=== PATIENT | male | born 1995 | race Caucasian/White ===

== ENCOUNTER 2023-07-23 15:15 | Emergency (ER) | payer OTHER ==
[2023-07-23 15:44] VITALS: O2SAT 100
[2023-07-23] MEDS ORDERED: AMOX/CLAV 875 MG/125 MG TABLET PO STA (17:22)
--- NOTE | 2023-07-23 17:24 | ED Physician Documentation ---
PD HPI UPPER EXT INJURY - Stated complaint Stated Complaint: RT HAND DOG BITE - Chief complaint Chief Complaint: Wound - History obtained from History obtained from: Patient - Additonal information Additional information: 28-year-old male, member of the , presents after sustaining a dog bite to the right hand. The patient was out on a trail nearby and a another trailer user's dog bit the patient on the right hand. According to the dog's collator operator, the dog is up-to-date on vaccines. The patient is also up-to-date on his tetanus. He states he poured some bottled water on it and use some baby wipes to clean it and then came directly here. He states it is quite tender, and he feels a little bit of numbness tingling in his hand. He is however able to flex and extend the wrist and fingers without difficulty.He denies any other injuries today. Review of Systems Constitutional: reports: Reviewed and negative Skin: reports: Bite / sting Musculoskeletal: reports: Extremity pain PD PAST MEDICAL HISTORY - Past Medical History Past Medical History: No - Past Surgical History Past Surgical History: No - Present Medications Home Medications: Ambulatory Orders Medication Instructions Recorded Confirmed Cyclobenzaprine [Flexeril] 10 mg PO TID PRN #20 tablet 04/17/23 Naproxen 2 tab PO BID PRN #30 tablet 04/17/23 Amox/Clav 875/125 [Augmentin] 1 each PO Q12H #20 tablet 07/23/23 - Allergies Allergies/Adverse Reactions: Allergies Allergy/AdvReac Type Severity Reaction Status Date / Time No Known Drug Allergies Allergy Verified 04/17/23 14:23 - Social History Does the pt smoke?: No Smoking Status: Never smoker PD ED PE NORMAL - Vitals Vital signs reviewed: Yes - General General: Alert and oriented X 3, No acute distress, Well developed/nourished - Derm Derm: Normal color, Warm and dry, Other (There are 3 puncture garcia on the dorsal surface of the right hand, The largest of which is approximately half centimeter, and there are 2 puncture garcia on the palmar surface of the right hand near the wrist, 1 is approximately half centimeter and 1 is less than 1/4 cm.) - Extremities Extremities: Other (Right hand dog bite. There is mild swelling on the dorsum of the right hand, he has normal flexion extension of the wrist and fingers. No erythema.) Results - Vitals Vitals: Vital Signs - 24 hr 07/23/23 15:41 Temperature 36.7 C Heart Rate 81 Respiratory 18 Rate Blood Pressure 132/96 H O2 Saturation 100 Oxygen O2 Source Room air PD Medical Decision Making - ED course Complexity details: d/w patient ED course: 28-year-old male presented with a dog bite to the right hand as described in HPI. Patient has approximately 5 puncture garcia on the right hand 3 on the dorsal surface and 2 on the volar surface and there is mild localized swelling. He has good range of motion at this time and have low suspicion for tendon injury or fracture. I am concerned that the location of the bite that there is risk of infection into the hand. We will start him on Augmentin and he was advised to keep wound clean and dry at home. He should return at any point in time if there is increased erythema, increased swelling, increased pain, purulent drainage, fever or new concerns. Patient was discharged home with a 10-day course of Augmentin, first dose was given here in the ER. He can take ibuprofen and Tylenol as needed for pain and keep elevated whenever possible. He is up-to-date on his tetanus and the dog is up-to-date on shots. Departure - Departure Disposition: 01 Home, Self Care Clinical Impression: Animal bite with open wound Instructions: ED Bite Animal General Prescriptions: Amox/Clav 875/125 [Augmentin] 1 each PO Q12H #20 tablet Comments: Dog bites of the hand have the risk of becoming infected into the hand space which can be complicated and require hand computer network support specialist. We will start you on a strong antibiotic called Augmentin, and you should take this twice a day for 10 days, keep the hand elevated whenever possible, you can take ibuprofen or Tylenol for pain. If the swelling increases, the pain increases you develop redness spreads in the hand, you have difficulty flexing or extending the fingers or wrist, please seek medical care. At home, please wash with gentle soap and water at least twice daily or anytime the hand is dirty. Your antibiotic was sent to [facility] in [place]. Forms: PCP List
[2023-07-23 17:48] VITALS: BP 128/88
== END 2023-07-23 17:44 | disposition home or self-care (01) ==
LOC: ED 15:15
DX: S61.451A Open bite of right hand, initial encounter (principal); W54.0XXA Bitten by dog, initial encounter; Y92.89 Other specified places as the place of occurrence of the external cause
CPT/HCPCS: 99282; 99283; A9270